=== PATIENT | male | born 1995 | race Two or more races ===

== ENCOUNTER 2020-09-14 17:11 | Emergency (ER) | payer OTHER ==
[~2020-09-14] VITALS: Ht 190.5 cm; Wt 97.6 kg
[2020-09-14 17:12] VITALS: BP 135/74
--- NOTE | 2020-09-14 18:21 | REPVR ---
PROCEDURE INFORMATION: Exam: XR Right Hand Exam date and time: 09/14/2020 5:37 PM Age: 25 years old Clinical indication: Pain; Hand; Right; Additional info: Trauma TECHNIQUE: Imaging protocol: XR Right hand. Views: 3 or more views. COMPARISON: No relevant prior studies available. FINDINGS: Bones/joints: There is no evidence of fracture or bony abnormality. Soft tissues: There is severe soft tissue swelling dorsal aspect of the hand. IMPRESSION: No evidence of fracture. Electronically signed by: Noé Sherwood On 09/14/2020 18:21:48 PM
== END 2020-09-14 18:11 | disposition home or self-care (01) ==
LOC: M ED 17:11
DX: S60.221A Contusion of right hand, initial encounter (principal); W22.8XXA Striking against or struck by other objects, initial encounter; Y92.89 Other specified places as the place of occurrence of the external cause; Y93.89 Activity, other specified; Y99.8 Other external cause status